=== PATIENT | female | born 1940 | race Caucasian/White ===

== ENCOUNTER → 2016-09-12 | Outpatient (CLI) | payer OTHER | LOC: BMCIMAGING 09:32 | DX: Z12.31 Encounter for screening mammogram for malignant neoplasm of breast (principal); Z80.3 Family history of malignant neoplasm of breast | CPT/HCPCS: G0202 ==

== ENCOUNTER → 2017-03-02 | Outpatient (CLI) | payer OTHER | LOC: FIMAGING 14:03 | DX: Z13.6 Encounter for screening for cardiovascular disorders (principal); I25.10 Atherosclerotic heart disease of native coronary artery without angina pectoris; I10 Essential (primary) hypertension; E78.00 Pure hypercholesterolemia, unspecified ==

== ENCOUNTER → 2018-07-29 | Outpatient (CLI) | payer OTHER, MEDICARE | LOC: FIMAGING 13:36 | PROVIDERS: ATTEND Midwife | DX: D25.9 Leiomyoma of uterus, unspecified (principal); R93.89 Abnormal findings on diagnostic imaging of other specified body structures ==